=== PATIENT | female | born 1945 | race African-American/Black ===

== ENCOUNTER 2023-07-28 20:34 | Inpatient (IN) | payer MEDICARE ==
[~2023-07-28] VITALS: Ht 175.3 cm; Wt 84.4 kg
[~2023-07-28 20:34] MED LIST: LOSARTAN 50 MG
[2023-07-28 20:39] VITALS: O2SAT 98
[2023-07-28] MEDS: SODIUM CHLORIDE 0.9% 1,000 ML IV ONE (21:00)
[2023-07-28 21:29] LABS: BASOPHILS % 0.7 % (0.0-2.0); HEMATOCRIT. 38.2 % (36.0-48.0); HEMOGLOBIN. 12.8 g/dL (12.0-16.0); LYMPHOCYTES % 22.1 % (20.0-50.0); MEAN CORPUSCULAR HGB CONC 33.5 g/dL (31.0-37.0); MEAN CORPUSCULAR VOLUME 98.3 fL (81.0-99.0); MEAN PLATELET VOLUME 7.7 fl (7.4-10.4); MONOCYTES % 6.5 % (2.0-8.0); NEUTROPHILS % 69.7 % (40.0-76.0); PLATELET 214 x1000/uL (130-400); RED BLOOD CELL COUNT 3.89 mill/uL (4.2-5.4); RED CELL DISTRIBUTION WIDTH 12.7 % (11.6-14.6); WHITE BLOOD COUNT 5.5 x1000/uL (4.5-11.0)
[2023-07-28 21:33] LABS: CHLORIDE 109 mEq/L (98-107); POTASSIUM 4.6 mEq/L (3.5-5.1); SODIUM 140 mEq/L (136-145)
[2023-07-28 21:34] LABS: CALCIUM 9.5 mg/dL (8.7-10.4); CARBON DIOXIDE 24 mEq/L (21-32)
[2023-07-28 21:38] LABS: CREATININE 1.2 mg/dL (0.6-1.0)
[2023-07-28 21:39] LABS: GLUCOSE 253 mg/dL (70-105); UREA NITROGEN BLOOD 14 mg/dL (9-23)
[2023-07-28 21:41] LABS: ALANINE AMINOTRANSFERASE < 7 IU/L (10-49); ASPARTATE AMINOTRANSFERASE 14 IU/L (<34); BETA HYDROXYBUTYRATE 0.7 mMol/L (0.0-0.3); BILIRUBIN TOTAL 0.6 mg/dL (0.1-1.0); PROTEIN TOTAL 6.5 g/dL (6.0-8.3)
[2023-07-28 22:49] LABS: BG BASE EXCESS -2.3 mmol/L (-2.0-2.0); BG CARBOXYHEMOGLOBIN 0.7 % (0.5-1.5); BG DEOXYHEMOGLOBIN 2.4 % (0.0-5.0); BG HCO3 ACT 21.9 mmol/L (22.0-26.0); BG METHEMOGLOBIN 0.1 % (0.0-1.5); BG OXYGEN SATURATION 97.6 % (92.0-98.5); BG OXYHEMOGLOBIN 96.8 % (94.0-97.0); BG PCO2 35.8 mmHg (35.0-45.0); BG PH 7.405 (7.350-7.450); BG PO2 101.4 mmHg (75.0-100.0); BG SAMPLE SITE RIGHT BRACHIAL; BG TOTAL HEMOGLOBIN 12.6 g/dL (12.0-18.0); BG VENT MODE ROOM AIR
[2023-07-29 00:04] LABS: CLARITY URINE CLOUDY (CLEAR); COLOR URINE YELLOW (YELLOW); GLUCOSE URINE 3+ (NEGATIVE); KETONES URINE TRACE (NEGATIVE); LEUKOCYTE ESTERASE URINE NEGATIVE (NEGATIVE); NITRITE URINE NEGATIVE (NEGATIVE); OCCULT BLOOD URINE NEGATIVE (NEGATIVE); PH URINE 5.5 (4.5-8.0); PROTEIN URINE TRACE (NEGATIVE); SPECIFIC GRAVITY URINE 1.016 (1.005-1.030); UROBILINOGEN URINE 0.2 E.U./dL (0.2-1.0)
[2023-07-29] MEDS: INSULIN REGULAR (HUMULIN R) 300UNITS/3ML VIAL SUBCUT NR (00:42)
[2023-07-29 04:45] LABS: SQUAMOUS EPITHELIAL CELL URINE FEW /lpf (RARE/1+)
[2023-07-29 04:47] LABS: WBC URINE 0-2 /hpf (0-2)
[2023-07-29 04:51] LABS: RBC URINE 0-2 /hpf (0-2)
[2023-07-29 04:53] LABS: BACTERIA URINE 2+
[2023-07-29] MEDS ORDERED: ONDANSETRON HCL 4MG/2ML INJ IV PRN (07:45)
[2023-07-29] MEDS ORDERED: TRAMADOL 50MG TABLET PO PRN (07:45)
[2023-07-29] MEDS ORDERED: DOCUSATE SODIUM 100MG CAPSULE PO PRN (07:45)
[2023-07-29] MEDS ORDERED: GUAIFENESIN 200MG/10ML SUGAR FREE UDC PO PRN (07:45)
[2023-07-29 08:00] VITALS: BP 136/69; PULSE 72; RESP 18; TEMP 97.9
[2023-07-29] MEDS: ENOXAPARIN 40MG/0.4ML SYR SUBCUT SCH (09:59)
[2023-07-29 10:22] VITALS: BP 136/69; PULSE 72; RESP 18; TEMP 97.9
[2023-07-29] MEDS ORDERED: AMLO10TA80 PO (11:47)
[2023-07-29] MEDS ORDERED: ESCI-7 PO (11:47)
[2023-07-29] MEDS ORDERED: METF-415 MT (11:47)
[2023-07-29] MEDS ORDERED: LOSA50TA41 PO (11:47)
[2023-07-29 12:00] VITALS: BP 127/70; PULSE 73; RESP 18; TEMP 97.3
[2023-07-29] MEDS: SODIUM CHLORIDE 0.9% 1,000 ML IV SCH (13:34)
[2023-07-29 16:00] VITALS: BP 123/61; PULSE 74; RESP 18; TEMP 97.8
[2023-07-29] MEDS: METFORMIN HCL 850MG TABLET PO SCH (17:38)
[2023-07-29] MEDS ORDERED: DEXTROSE 50% WATER 50ML SYRINGE IV PRN (19:00)
[2023-07-29] MEDS: INSULIN LISPRO 100 UNITS/ML SUBCUT SCH (19:04)
[2023-07-29] MEDS ORDERED: NALOXONE HCL 0.4MG/ML VIAL IV PRN (19:15)
[2023-07-29] MEDS: BLOOD SUGAR DIAGNOSTIC STRIP TEST SCH (21:00)
[2023-07-29 22:24] LABS: TROPONIN I HIGH SENSITIVITY 6 ng/L (3.0-34)
[2023-07-29 23:55] VITALS: BP 149/90; PULSE 107; RESP 18; TEMP 97.2
[2023-07-30] VITALS: RESP 0
[2023-07-30] MEDS: ACETAMINOPHEN 325MG TABLET PO PRN (01:31)
[2023-07-30 04:25] VITALS: BP 135/74; PULSE 74; RESP 18; TEMP 97.8
[2023-07-30 06:34] LABS: BASOPHILS % 0.5 % (0.0-2.0); EOSINOPHILS % 1.5 % (0.0-5.0); HEMATOCRIT. 33.8 % (36.0-48.0); HEMOGLOBIN. 11.7 g/dL (12.0-16.0); LYMPHOCYTES % 35.4 % (20.0-50.0); MEAN CORPUSCULAR HEMOGLOBIN 32.7 pg (28.0-32.0); MEAN CORPUSCULAR HGB CONC 34.6 g/dL (31.0-37.0); MEAN CORPUSCULAR VOLUME 94.5 fL (81.0-99.0); MEAN PLATELET VOLUME 8.1 fl (7.4-10.4); MONOCYTES % 7.9 % (2.0-8.0); NEUTROPHILS % 54.7 % (40.0-76.0); PLATELET 180 x1000/uL (130-400); RED BLOOD CELL COUNT 3.57 mill/uL (4.2-5.4); RED CELL DISTRIBUTION WIDTH 12.8 % (11.6-14.6); WHITE BLOOD COUNT 5.5 x1000/uL (4.5-11.0)
[2023-07-30 06:36] LABS: CHLORIDE 110 mEq/L (98-107); POTASSIUM 3.9 mEq/L (3.5-5.1); SODIUM 142 mEq/L (136-145)
[2023-07-30 06:39] LABS: CARBON DIOXIDE 22 mEq/L (21-32)
[2023-07-30 06:40] LABS: CALCIUM 9.3 mg/dL (8.7-10.4)
[2023-07-30 06:41] LABS: TROPONIN I HIGH SENSITIVITY 6 ng/L (3.0-34)
[2023-07-30 06:44] LABS: CREATININE 0.9 mg/dL (0.6-1.0); GLUCOSE 162 mg/dL (70-105)
[2023-07-30 06:45] LABS: ALANINE AMINOTRANSFERASE 7 IU/L (10-49); LDL CHOLESTEROL 80 mg/dL (5-100); THYROID STIMULATING HORMONE 1.33 uIU/mL (0.55-4.78); TRIGLYCERIDE 78 mg/dL (0-150); UREA NITROGEN BLOOD 18 mg/dL (9-23)
[2023-07-30 06:46] LABS: ALBUMIN 3.7 g/dL (3.2-4.8); ASPARTATE AMINOTRANSFERASE 15 IU/L (<34); CHOLESTEROL 121 mg/dL (<200); HDL CHOLESTEROL 38 mg/dL (>65); T4 FREE 1.11 ng/dL (0.89-1.76)
[2023-07-30 06:47] LABS: BILIRUBIN TOTAL 0.6 mg/dL (0.1-1.0); PROTEIN TOTAL 6.3 g/dL (6.0-8.3)
[2023-07-30 08:45] VITALS: BP 125/69; PULSE 88; RESP 18; TEMP 96.4
[2023-07-30 12:00] VITALS: BP_SYST 128; BP_DIAS 70; BP_DIAS 78; PULSE 74; RESP 17; TEMP 98.3
[2023-07-30 16:00] VITALS: BP 149/80; PULSE 75; RESP 20; TEMP 98
[2023-07-30 20:00] VITALS: BP 140/78; PULSE 67; RESP 18; TEMP 98.2
[2023-07-31] VITALS: BP 143/77; PULSE 70; RESP 19; TEMP 98
[2023-07-31 04:00] VITALS: BP 140/76; PULSE 64; RESP 20; TEMP 98
[2023-07-31 08:00] VITALS: BP 140/60; PULSE 61; RESP 18; TEMP 97.7
[2023-07-31 12:00] VITALS: BP 123/64; PULSE 76; RESP 18; TEMP 97.6
[2023-07-31 16:00] VITALS: BP 135/68; PULSE 70; RESP 18; TEMP 97.6
[2023-07-31 20:00] VITALS: BP 145/77; PULSE 80; RESP 18; TEMP 97.5
[2023-08-01] VITALS (7 sets, daily range): BP systolic 127–155; BP diastolic 63–84; PULSE 71–79; RESP 17–20; TEMP 97.3–99
[2023-08-01] MEDS: CITALOPRAM HYDROBROMIDE 10MG TABLET PO SCH (14:05)
[2023-08-01] MEDS ORDERED: ONDANSETRON 4MG ODT PO PRN (15:59)
== END 2023-08-01 21:24 | DRG 74 ==
LOC: ER 20:34 → 7EST 07-29 01:28
PROVIDERS: ADMIT Hospitalist; ATTEND Hospitalist
DX: G90.9 Disorder of the autonomic nervous system, unspecified (principal); N39.0 Urinary tract infection, site not specified; E11.65 Type 2 diabetes mellitus with hyperglycemia; I10 Essential (primary) hypertension; E11.42 Type 2 diabetes mellitus with diabetic polyneuropathy; R26.9 Unspecified abnormalities of gait and mobility; D64.9 Anemia, unspecified; M16.11 Unilateral primary osteoarthritis, right hip; M17.11 Unilateral primary osteoarthritis, right knee; Z82.49 Family history of ischemic heart disease and other diseases of the circulatory system; Z87.891 Personal history of nicotine dependence; Z90.710 Acquired absence of both cervix and uterus
CPT/HCPCS: 36415; 36600; 71045; 72192; 73502; 73552; 73562; 73700; 80053; 80061; 81003; 82010; 82375; 82805; 82962; 83036; 84439; 84443; 84484; 85025; 93005; 93306; 93970; 97162; 97166; 97530; 99285; J1650; J1815; J7030

== ENCOUNTER 2023-08-01 21:25 | Inpatient (IN) | payer MEDICARE ==
[~2023-08-01] VITALS: Ht 175.3 cm; Wt 84.4 kg
[~2023-08-01 21:25] MED LIST changes: +AMLO10TA80 PO; +ESCI-7 PO; +LOSA50TA41 PO; +METF-415 MT
[2023-08-01 21:30] VITALS: BP 132/81; PULSE 81; RESP 19; TEMP 97.3
[2023-08-01 22:00] VITALS: BP 132/81; PULSE 81; RESP 19; TEMP 97.3
[2023-08-01] MEDS ORDERED: NALOXONE HCL 0.4MG/ML 1ML VIAL IV PRN (22:15)
[2023-08-01] MEDS ORDERED: GUAIFENESIN 200MG/10ML SUGAR FREE UDC PO PRN (22:15)
[2023-08-01] MEDS ORDERED: DEXTROSE 50% WATER 50ML SYRINGE IV PRN (22:15)
[2023-08-02] MEDS: BLOOD SUGAR DIAGNOSTIC STRIP TEST SCH (06:48)
[2023-08-02 06:50] LABS: BASOPHILS % 0.5 % (0.0-2.0); EOSINOPHILS % 1.4 % (0.0-5.0); HEMATOCRIT. 36.2 % (36.0-48.0); HEMOGLOBIN. 12.4 g/dL (12.0-16.0); LYMPHOCYTES % 33.5 % (20.0-50.0); MEAN CORPUSCULAR HEMOGLOBIN 32.7 pg (28.0-32.0); MEAN CORPUSCULAR HGB CONC 34.2 g/dL (31.0-37.0); MEAN CORPUSCULAR VOLUME 95.6 fL (81.0-99.0); MEAN PLATELET VOLUME 7.9 fl (7.4-10.4); NEUTROPHILS % 56.6 % (40.0-76.0); PLATELET 201 x1000/uL (130-400); RED BLOOD CELL COUNT 3.79 mill/uL (4.2-5.4); RED CELL DISTRIBUTION WIDTH 12.8 % (11.6-14.6); WHITE BLOOD COUNT 5.1 x1000/uL (4.5-11.0)
[2023-08-02] MEDS: INSULIN LISPRO 100 UNITS/ML SUBCUT SCH (07:07)
[2023-08-02 07:10] LABS: CHLORIDE 108 mEq/L (98-107); SODIUM 140 mEq/L (136-145)
[2023-08-02 07:11] LABS: CARBON DIOXIDE 24 mEq/L (21-32)
[2023-08-02 07:12] LABS: CALCIUM 9.1 mg/dL (8.7-10.4)
[2023-08-02 07:16] LABS: CREATININE 0.9 mg/dL (0.6-1.0); GLUCOSE 182 mg/dL (70-105)
[2023-08-02 07:17] LABS: UREA NITROGEN BLOOD 12 mg/dL (9-23)
[2023-08-02 07:18] LABS: ALANINE AMINOTRANSFERASE 10 IU/L (10-49); ASPARTATE AMINOTRANSFERASE 21 IU/L (<34)
[2023-08-02 07:19] LABS: BILIRUBIN TOTAL 0.5 mg/dL (0.1-1.0); PROTEIN TOTAL 6.8 g/dL (6.0-8.3)
[2023-08-02] MEDS: ENOXAPARIN 40MG/0.4ML SYR SUBCUT SCH (08:28)
[2023-08-02] MEDS: DOCUSATE SODIUM 100MG CAPSULE PO SCH (08:28)
[2023-08-02] MEDS: CITALOPRAM HYDROBROMIDE 10MG TABLET PO SCH (08:28)
[2023-08-02] MEDS: METFORMIN HCL 850MG TABLET PO SCH (08:28)
[2023-08-02] MEDS ORDERED: INSULIN LISPRO 100 UNITS/ML SUBCUT SCH (09:00)
[2023-08-02] MEDS: TRAMADOL 50MG TABLET PO PRN (09:17)
[2023-08-02 10:39] VITALS: BP 138/85; PULSE 79; RESP 18; TEMP 97.5
[2023-08-02 16:58] LABS: CLARITY URINE CLEAR (CLEAR); COLOR URINE DARK YELLOW (YELLOW); GLUCOSE URINE 2+ (NEGATIVE); KETONES URINE TRACE (NEGATIVE); LEUKOCYTE ESTERASE URINE NEGATIVE (NEGATIVE); NITRITE URINE NEGATIVE (NEGATIVE); OCCULT BLOOD URINE NEGATIVE (NEGATIVE); PH URINE 5.5 (4.5-8.0); PROTEIN URINE TRACE (NEGATIVE); SPECIFIC GRAVITY URINE 1.023 (1.005-1.030)
[2023-08-02 17:30] LABS: BACTERIA URINE TRACE; RBC URINE 0-2 /hpf (0-2); SQUAMOUS EPITHELIAL CELL URINE 1+ /lpf (RARE/1+); WBC URINE 0-2 /hpf (0-2)
[2023-08-02 18:10] LABS: TROPONIN I HIGH SENSITIVITY 5 ng/L (3.0-34)
[2023-08-02 20:00] VITALS: BP 130/84; PULSE 85; RESP 18; TEMP 98.4
[2023-08-03 06:16] LABS: BASOPHILS % 0.7 % (0.0-2.0); EOSINOPHILS % 0.3 % (0.0-5.0); HEMATOCRIT. 38.7 % (36.0-48.0); HEMOGLOBIN. 13.2 g/dL (12.0-16.0); LYMPHOCYTES % 21.4 % (20.0-50.0); MEAN CORPUSCULAR HEMOGLOBIN 32.8 pg (28.0-32.0); MEAN CORPUSCULAR HGB CONC 34.1 g/dL (31.0-37.0); MEAN CORPUSCULAR VOLUME 96.1 fL (81.0-99.0); MEAN PLATELET VOLUME 8.4 fl (7.4-10.4); MONOCYTES % 6.4 % (2.0-8.0); NEUTROPHILS % 71.2 % (40.0-76.0); PLATELET 176 x1000/uL (130-400); RED BLOOD CELL COUNT 4.03 mill/uL (4.2-5.4); RED CELL DISTRIBUTION WIDTH 13.2 % (11.6-14.6); WHITE BLOOD COUNT 5.4 x1000/uL (4.5-11.0)
[2023-08-03 06:20] LABS: CHLORIDE 107 mEq/L (98-107); POTASSIUM 4.4 mEq/L (3.5-5.1); SODIUM 139 mEq/L (136-145)
[2023-08-03 06:21] LABS: CALCIUM 9.2 mg/dL (8.7-10.4); CARBON DIOXIDE 24 mEq/L (21-32)
[2023-08-03 06:25] LABS: IRON 66 ug/dL (50-170)
[2023-08-03 06:26] LABS: AMMONIA < 17 uMol/L (<32); GLUCOSE 232 mg/dL (70-105); UREA NITROGEN BLOOD 16 mg/dL (9-23)
[2023-08-03 06:27] LABS: ALANINE AMINOTRANSFERASE 50 IU/L (10-49); ASPARTATE AMINOTRANSFERASE 73 IU/L (<34)
[2023-08-03 06:28] LABS: BILIRUBIN TOTAL 0.5 mg/dL (0.1-1.0); CREATINE KINASE 39 IU/L (34-145); PROTEIN TOTAL 6.4 g/dL (6.0-8.3); TOTAL IRON BINDING CAPACITY 292 ug/dl (250-425)
[2023-08-03 06:29] LABS: THYROID STIMULATING HORMONE 2.15 uIU/mL (0.55-4.78)
[2023-08-03 06:33] LABS: CREATININE 1.3 mg/dL (0.6-1.0)
[2023-08-03 07:05] LABS: FERRITIN 269 ng/mL (10-291)
[2023-08-03 07:06] LABS: FOLIC ACID (FOLATE) SERUM 6.01 ng/mL (>5.38)
[2023-08-03 07:07] LABS: VITAMIN B12 SERUM 705 pg/mL (211-911)
[2023-08-03 08:00] VITALS: BP 126/81; PULSE 70; RESP 18; TEMP 97.1
[2023-08-03] MEDS ORDERED: AMLO10TA80 PO (15:32)
[2023-08-03] MEDS ORDERED: ESCI-7 PO (15:32)
[2023-08-03] MEDS ORDERED: LOSA50TA41 PO (15:32)
[2023-08-03 20:00] VITALS: BP 132/60; PULSE 89; RESP 18; TEMP 97
[2023-08-04 07:16] LABS: HEMATOCRIT 30.4 % (36.0-48.0); HEMOGLOBIN 10.6 g/dL (12.0-16.0); MEAN CORPUSCULAR HGB CONC 34.8 g/dL (31.0-37.0); MEAN CORPUSCULAR VOLUME 94.9 fL (81.0-99.0); PLATELET 196 x1000/uL (130-400); RED BLOOD CELL COUNT 3.21 mill/uL (4.2-5.4); RED CELL DISTRIBUTION WIDTH 12.9 % (11.6-14.6); WHITE BLOOD COUNT 4.1 x1000/uL (4.5-11.0)
[2023-08-04 08:00] VITALS: BP 119/68; PULSE 73; RESP 18; TEMP 97.7
[2023-08-04 08:53] LABS: CHLORIDE 111 mEq/L (98-107); POTASSIUM 3.9 mEq/L (3.5-5.1); SODIUM 142 mEq/L (136-145)
[2023-08-04 08:55] LABS: CARBON DIOXIDE 23 mEq/L (21-32)
[2023-08-04 08:56] LABS: CALCIUM 8.8 mg/dL (8.7-10.4)
[2023-08-04 09:00] LABS: GLUCOSE 137 mg/dL (70-105)
[2023-08-04 09:01] LABS: UREA NITROGEN BLOOD 19 mg/dL (9-23)
[2023-08-04] MEDS: MAGNESIUM OXIDE 400MG TABLET PO SCH (09:37)
[2023-08-04 20:00] VITALS: BP 116/80; PULSE 77; RESP 19; TEMP 97.7
[2023-08-05 08:00] VITALS: BP 128/60; PULSE 53; RESP 18; TEMP 98.6
[2023-08-05 19:44] VITALS: BP 113/74; PULSE 84; RESP 19; TEMP 97.3
[2023-08-06] MEDS: ACETAMINOPHEN 325MG TABLET PO PRN (06:25)
[2023-08-06 07:53] VITALS: BP 135/69; PULSE 72; RESP 18; TEMP 98
[2023-08-06 20:00] VITALS: BP 146/89; PULSE 76; RESP 19; TEMP 98.6
[2023-08-07 06:56] LABS: BASOPHILS % 0.6 % (0.0-2.0); EOSINOPHILS % 2.5 % (0.0-5.0); HEMATOCRIT. 33.1 % (36.0-48.0); HEMOGLOBIN. 11.4 g/dL (12.0-16.0); LYMPHOCYTES % 36.5 % (20.0-50.0); MEAN CORPUSCULAR HEMOGLOBIN 32.9 pg (28.0-32.0); MEAN CORPUSCULAR HGB CONC 34.3 g/dL (31.0-37.0); MEAN CORPUSCULAR VOLUME 96.1 fL (81.0-99.0); MEAN PLATELET VOLUME 7.7 fl (7.4-10.4); MONOCYTES % 11.7 % (2.0-8.0); NEUTROPHILS % 48.7 % (40.0-76.0); PLATELET 205 x1000/uL (130-400); RED BLOOD CELL COUNT 3.45 mill/uL (4.2-5.4); RED CELL DISTRIBUTION WIDTH 12.9 % (11.6-14.6); WHITE BLOOD COUNT 4.2 x1000/uL (4.5-11.0)
[2023-08-07 07:04] LABS: CHLORIDE 109 mEq/L (98-107); POTASSIUM 4.5 mEq/L (3.5-5.1); SODIUM 140 mEq/L (136-145)
[2023-08-07 07:05] LABS: CARBON DIOXIDE 25 mEq/L (21-32)
[2023-08-07 07:10] LABS: CREATININE 0.9 mg/dL (0.6-1.0); GLUCOSE 147 mg/dL (70-105); UREA NITROGEN BLOOD 12 mg/dL (9-23)
[2023-08-07 07:12] LABS: PHOSPHORUS 2.4 mg/dL (2.5-4.9)
[2023-08-07 07:48] VITALS: BP 146/74; PULSE 73; RESP 16; TEMP 97.9
[2023-08-07] MEDS: MAGNESIUM 2 G PREMIX 50 ML IV ONE (16:39)
[2023-08-07] MEDS: SODIUM PHOSPHATE 10 MMOL in DEXT 5% WATER 246.6667 ML IV ONE (17:41)
[2023-08-07 20:00] VITALS: BP 122/64; PULSE 81; RESP 18; TEMP 97
[2023-08-08 07:46] LABS: PHOSPHORUS 2.7 mg/dL (2.5-4.9)
[2023-08-08 08:00] VITALS: BP 132/67; PULSE 80; RESP 18; TEMP 98.2
[2023-08-08] MEDS: ONDANSETRON 4MG ODT PO PRN (11:51)
[2023-08-08 19:49] VITALS: BP 131/47; PULSE 62; RESP 17; TEMP 98.4
[2023-08-09 08:00] VITALS: BP_SYST 129; BP_SYST 145; BP_DIAS 66; BP_DIAS 89; PULSE 70; PULSE 88; RESP 19; TEMP 97.7; TEMP 98.1
[2023-08-09 20:00] VITALS: BP 120/62; PULSE 83; RESP 18; TEMP 97.7
[2023-08-10 08:00] VITALS: BP 126/60; PULSE 65; RESP 18; TEMP 98
[2023-08-10 19:47] VITALS: BP 139/86; PULSE 56; RESP 20; TEMP 97.7
[2023-08-11 08:00] VITALS: BP 121/70; PULSE 76; RESP 18; TEMP 98
[2023-08-11] MEDS: ERGOCALCIFEROL 50000UNITS CAPSULE PO SCH (17:43)
[2023-08-11 20:00] VITALS: BP 134/68; PULSE 85; RESP 18; TEMP 98.1
[2023-08-12 08:00] VITALS: BP 124/64; PULSE 68; RESP 18; TEMP 97.3
[2023-08-12 09:14] LABS: BASOPHILS % 0.7 % (0.0-2.0); EOSINOPHILS % 2.4 % (0.0-5.0); HEMOGLOBIN. 10.9 g/dL (12.0-16.0); LYMPHOCYTES % 33.4 % (20.0-50.0); MEAN CORPUSCULAR HEMOGLOBIN 32.4 pg (28.0-32.0); MEAN CORPUSCULAR HGB CONC 34.1 g/dL (31.0-37.0); MEAN CORPUSCULAR VOLUME 95.2 fL (81.0-99.0); MEAN PLATELET VOLUME 7.5 fl (7.4-10.4); MONOCYTES % 11.2 % (2.0-8.0); NEUTROPHILS % 52.3 % (40.0-76.0); PLATELET 224 x1000/uL (130-400); RED BLOOD CELL COUNT 3.36 mill/uL (4.2-5.4); WHITE BLOOD COUNT 4.5 x1000/uL (4.5-11.0)
[2023-08-12 09:19] LABS: CHLORIDE 110 mEq/L (98-107); POTASSIUM 4.4 mEq/L (3.5-5.1); SODIUM 140 mEq/L (136-145)
[2023-08-12 09:20] LABS: CARBON DIOXIDE 25 mEq/L (21-32)
[2023-08-12 09:25] LABS: CREATININE 0.8 mg/dL (0.6-1.0); GLUCOSE 158 mg/dL (70-105); UREA NITROGEN BLOOD 11 mg/dL (9-23)
[2023-08-12 09:40] LABS: CALCIUM 10.3 mg/dL (8.7-10.4)
[2023-08-12 15:44] LABS: RED CELL DISTRIBUTION WIDTH 13.1 % (11.6-14.6)
[2023-08-12 20:00] VITALS: BP 115/68; PULSE 89; RESP 18; TEMP 97.5
[2023-08-13 08:00] VITALS: BP 117/56; PULSE 73; RESP 19; TEMP 98.2
[2023-08-13 20:00] VITALS: BP 125/65; PULSE 73; RESP 18; TEMP 97.7
[2023-08-14 08:00] VITALS: BP 114/72; PULSE 89; RESP 17; TEMP 98.5
[2023-08-14] MEDS ORDERED: NALOXONE HCL 0.4MG/ML VIAL IV PRN (09:00)
[2023-08-14] MEDS: TRAMADOL 50MG TABLET PO PRN (09:23)
[2023-08-14 20:00] VITALS: BP 121/77; PULSE 92; RESP 20; TEMP 97.2
[2023-08-15 08:00] VITALS: PULSE 73; RESP 18; TEMP 98.1
[2023-08-15] MEDS: ENOXAPARIN 40MG/0.4ML SYR SUBCUT SCH (08:33)
[2023-08-15] MEDS ORDERED: ACETAMINOPHEN 325MG TABLET PO PRN (10:45)
[2023-08-15 20:00] VITALS: BP 130/77; PULSE 49; RESP 19; TEMP 96.9
[2023-08-16 08:00] VITALS: BP 101/65; PULSE 86; RESP 18; TEMP 97.7
[2023-08-16 10:40] VITALS: BP 101/65; PULSE 86; TEMP 97.7; O2SAT 97
[2023-08-16 11:05] VITALS: BP 101/65; PULSE 86; RESP 18
[2023-08-18] MEDS ORDERED: ERGOCALCIFEROL 50000UNITS CAPSULE PO SCH (09:00)
== END 2023-08-16 11:40 | disposition home health service (06) | DRG 71 ==
PROVIDERS: ADMIT Physical Medicine & Rehabilitation Spinal Cord Injury Medicine; ATTEND Hospitalist
DX: G93.41 Metabolic encephalopathy (principal); N39.0 Urinary tract infection, site not specified; M15.9 Polyosteoarthritis, unspecified; E11.42 Type 2 diabetes mellitus with diabetic polyneuropathy; L60.3 Nail dystrophy; I10 Essential (primary) hypertension; E11.65 Type 2 diabetes mellitus with hyperglycemia; D64.9 Anemia, unspecified; E55.9 Vitamin D deficiency, unspecified; E73.9 Lactose intolerance, unspecified; F41.9 Anxiety disorder, unspecified; R05.9 Cough, unspecified; R53.83 Other fatigue; R11.2 Nausea with vomiting, unspecified; R42 Dizziness and giddiness; R53.1 Weakness; R53.81 Other malaise; R55 Syncope and collapse; R26.9 Unspecified abnormalities of gait and mobility; S80.11XA Contusion of right lower leg, initial encounter; F17.210 Nicotine dependence, cigarettes, uncomplicated; Z79.899 Other long term (current) drug therapy; Z79.4 Long term (current) use of insulin; Z79.84 Long term (current) use of oral hypoglycemic drugs; Z90.710 Acquired absence of both cervix and uterus; Z91.81 History of falling; Z82.49 Family history of ischemic heart disease and other diseases of the circulatory system; X58.XXXA Exposure to other specified factors, initial encounter; Y93.89 Activity, other specified; Y92.89 Other specified places as the place of occurrence of the external cause; Y99.8 Other external cause status
CPT/HCPCS: 36415; 70551; 80048; 80053; 81003; 82140; 82306; 82550; 82607; 82728; 82746; 82962; 83036; 83540; 83550; 83735; 84100; 84134; 84443; 84484; 85025; 85027; 92523; 92610; 93005; 97110; 97116; 97150; 97162; 97166; 97530; 97535; 97542; J1650; J1815; J3475; J3490; J7060; Q0162

== ENCOUNTER 2023-10-11 18:43 | Inpatient (IN) | payer MEDICARE ==
[~2023-10-11] VITALS: Ht 170.2 cm; Wt 67.1 kg
[~2023-10-11 18:43] MED LIST changes: -LOSARTAN 50 MG
[2023-10-11] MEDS: SODIUM CHLORIDE 0.9% 1000ML BAG (SEPSIS BOLUS) IV ONE (19:34)
[2023-10-11 20:06] LABS: BASOPHILS % 0.1 % (0.0-2.0); HEMATOCRIT. 36.7 % (36.0-48.0); HEMOGLOBIN. 12.1 g/dL (12.0-16.0); LYMPHOCYTES % 8.7 % (20.0-50.0); MEAN CORPUSCULAR HEMOGLOBIN 32.7 pg (28.0-32.0); MEAN CORPUSCULAR HGB CONC 33.1 g/dL (31.0-37.0); MEAN CORPUSCULAR VOLUME 98.6 fL (81.0-99.0); MEAN PLATELET VOLUME 7.5 fl (7.4-10.4); MONOCYTES % 4.9 % (2.0-8.0); NEUTROPHILS % 86.3 % (40.0-76.0); PLATELET 164 x1000/uL (130-400); RED BLOOD CELL COUNT 3.72 mill/uL (4.2-5.4); RED CELL DISTRIBUTION WIDTH 13.2 % (11.6-14.6); WHITE BLOOD COUNT 11.5 x1000/uL (4.5-11.0)
[2023-10-11 20:14] LABS: CHLORIDE 112 mEq/L (98-107); POTASSIUM 5.8 mEq/L (3.5-5.1); SODIUM 143 mEq/L (136-145)
[2023-10-11 20:15] LABS: CALCIUM 10.4 mg/dL (8.7-10.4); CARBON DIOXIDE 19 mEq/L (21-32)
[2023-10-11 20:19] LABS: INR 1.3; PROTHROMBIN TIME 14.2 sec (9.6-11.0)
[2023-10-11 20:20] LABS: GLUCOSE 181 mg/dL (70-105); UREA NITROGEN BLOOD 40 mg/dL (9-23)
[2023-10-11 20:21] LABS: TROPONIN I HIGH SENSITIVITY 7 ng/L (3.0-34)
[2023-10-11 20:22] LABS: ALANINE AMINOTRANSFERASE 30 IU/L (10-49); ALBUMIN 4.3 g/dL (3.2-4.8); ASPARTATE AMINOTRANSFERASE 45 IU/L (<34); BILIRUBIN DIRECT 0.3 mg/dL (<=3.0); CREATINE KINASE 185 IU/L (34-145); LACTATE DEHYDROGENASE 207 IU/L (120-246)
[2023-10-11 20:23] LABS: BILIRUBIN TOTAL 0.8 mg/dL (0.1-1.0); PROTEIN TOTAL 7.2 g/dL (6.0-8.3)
[2023-10-11 20:28] LABS: CREATININE 1.9 mg/dL (0.6-1.0)
[2023-10-11] MEDS ORDERED: CALCIUM GLUCONATE 1,000 MG in DEXT 5% WATER 100 ML IV ONE (22:00)
[2023-10-11] MEDS: CALCIUM GLUCONATE 1GM PREMIX 50 ML IV NR (22:19)
[2023-10-11] MEDS: DEXTROSE 50% WATER 50ML SYRINGE IV ONE (22:20)
[2023-10-11] MEDS: SODIUM BICARBONATE 8.4% 50MEQ/50ML SYR IV ONE (22:20)
[2023-10-11] MEDS: INSULIN REGULAR (HUMULIN R) 1000UNITS/10ML VIAL IV ONE (22:32)
[2023-10-11 23:16] LABS: CLARITY URINE CLEAR (CLEAR); COLOR URINE YELLOW (YELLOW); GLUCOSE URINE 2+ (NEGATIVE); KETONES URINE 1+ (NEGATIVE); LEUKOCYTE ESTERASE URINE NEGATIVE (NEGATIVE); NITRITE URINE NEGATIVE (NEGATIVE); OCCULT BLOOD URINE NEGATIVE (NEGATIVE); PROTEIN URINE NEGATIVE (NEGATIVE); SPECIFIC GRAVITY URINE 1.017 (1.005-1.030)
[2023-10-11] MEDS: CEFTRIAXONE 2GM/50ML 50 ML IV ONE (23:21)
[2023-10-11 23:25] LABS: *AMPHETAMINES SCREEN URINE NEGATIVE (NEGATIVE); *BARBITURATES SCREEN URINE NEGATIVE (NEGATIVE); *BENZODIAZEPINES SCREEN URINE NEGATIVE (NEGATIVE); *COCAINE SCREEN URINE NEGATIVE (NEGATIVE); CANNABINOID URINE SCREEN NEGATIVE (NEGATIVE); ECSTASY MDMA SCREEN URINE NEGATIVE (NEGATIVE); METHADONE URINE SCREEN NEGATIVE (NEGATIVE); OPIATES URINE SCREEN NEGATIVE (NEGATIVE); PHENCYCLIDINE URINE SCREEN NEGATIVE (NEGATIVE)
[2023-10-11 23:31] LABS: BACTERIA URINE 1+; RBC URINE 0-2 /hpf (0-2); SQUAMOUS EPITHELIAL CELL URINE FEW /lpf (RARE/1+); WBC URINE 0-2 /hpf (0-2)
[2023-10-12] MEDS: ALBUTEROL (0.083%) 2.5MG/3ML NEB HHN SCH (02:16)
[2023-10-12 03:30] VITALS: BP 131/75; PULSE 90; RESP 19; TEMP 97.5
[2023-10-12] MEDS ORDERED: SODIUM CHLORIDE 0.9% 1,000 ML IV SCH (06:15)
[2023-10-12] MEDS ORDERED: ONDANSETRON HCL 4MG/2ML INJ IV PRN (06:15)
[2023-10-12] MEDS ORDERED: DEXTROSE 50% WATER 50ML SYRINGE IV PRN (06:15)
[2023-10-12] MEDS: BLOOD SUGAR DIAGNOSTIC STRIP TEST SCH (06:50)
[2023-10-12] MEDS: INSULIN LISPRO 100 UNITS/ML SUBCUT SCH (07:02)
[2023-10-12 08:00] VITALS: BP 101/66; PULSE 75; RESP 14; TEMP 98.5
[2023-10-12] MEDS ORDERED: NALOXONE HCL 0.4MG/ML VIAL IV PRN (08:00)
[2023-10-12 08:59] LABS: BASOPHILS % 0.4 % (0.0-2.0); EOSINOPHILS % 0.6 % (0.0-5.0); HEMATOCRIT. 33.3 % (36.0-48.0); HEMOGLOBIN. 11.1 g/dL (12.0-16.0); LYMPHOCYTES % 16.2 % (20.0-50.0); MEAN CORPUSCULAR HEMOGLOBIN 32.6 pg (28.0-32.0); MEAN CORPUSCULAR HGB CONC 33.4 g/dL (31.0-37.0); MEAN CORPUSCULAR VOLUME 97.7 fL (81.0-99.0); MEAN PLATELET VOLUME 7.6 fl (7.4-10.4); MONOCYTES % 8.6 % (2.0-8.0); NEUTROPHILS % 74.2 % (40.0-76.0); PLATELET 146 x1000/uL (130-400); RED BLOOD CELL COUNT 3.41 mill/uL (4.2-5.4); WHITE BLOOD COUNT 7.9 x1000/uL (4.5-11.0)
[2023-10-12 09:06] LABS: POTASSIUM 4.3 mEq/L (3.5-5.1)
[2023-10-12 09:12] LABS: CREATININE 1.3 mg/dL (0.6-1.0)
[2023-10-12] MEDS: PANTOPRAZOLE SODIUM 40 MG/VIAL IV SCH (09:50)
[2023-10-12 12:00] VITALS: BP 106/62; PULSE 85; RESP 20; TEMP 97.9
[2023-10-12] MEDS: DEXT 5%/0.45% NACL 1000ML 1,000 ML IV SCH (12:36)
[2023-10-12 16:00] VITALS: BP 100/61; PULSE 77; RESP 13; TEMP 98.5
[2023-10-12 20:00] VITALS: BP 115/64; PULSE 77; RESP 15; TEMP 98.2
[2023-10-12] MEDS: ENOXAPARIN 60MG/0.6ML SYR SUBCUT SCH (22:58)
[2023-10-13] VITALS: BP 129/72; PULSE 75; RESP 16; TEMP 98
[2023-10-13] MEDS: HYDROCODONE/ACETAMINOPHEN 5/325MG TABLET PO PRN (02:01)
[2023-10-13 04:00] VITALS: BP 96/67; PULSE 62; RESP 21; TEMP 98.1
[2023-10-13 06:26] LABS: CHLORIDE 111 mEq/L (98-107); POTASSIUM 3.9 mEq/L (3.5-5.1); SODIUM 143 mEq/L (136-145)
[2023-10-13 06:27] LABS: CALCIUM 9.4 mg/dL (8.7-10.4); CARBON DIOXIDE 24 mEq/L (21-32)
[2023-10-13 06:32] LABS: GLUCOSE 168 mg/dL (70-105); UREA NITROGEN BLOOD 27 mg/dL (9-23)
[2023-10-13 06:59] LABS: BASOPHILS % 0.6 % (0.0-2.0); EOSINOPHILS % 1.5 % (0.0-5.0); HEMATOCRIT. 33.1 % (36.0-48.0); LYMPHOCYTES % 24.7 % (20.0-50.0); MEAN CORPUSCULAR HEMOGLOBIN 32.1 pg (28.0-32.0); MEAN CORPUSCULAR HGB CONC 33.4 g/dL (31.0-37.0); MEAN CORPUSCULAR VOLUME 96.3 fL (81.0-99.0); MEAN PLATELET VOLUME 8.3 fl (7.4-10.4); MONOCYTES % 10.3 % (2.0-8.0); NEUTROPHILS % 62.9 % (40.0-76.0); PLATELET 139 x1000/uL (130-400); RED BLOOD CELL COUNT 3.44 mill/uL (4.2-5.4); RED CELL DISTRIBUTION WIDTH 13.2 % (11.6-14.6); WHITE BLOOD COUNT 5.3 x1000/uL (4.5-11.0)
[2023-10-13 08:00] VITALS: BP 129/73; PULSE 66; RESP 14; TEMP 98.4
[2023-10-13] MEDS: ENOXAPARIN 60MG/0.6ML SYR SUBCUT SCH (11:00)
[2023-10-13] MEDS: IOHEXOL-300 100 ML BOTTLE ONE (11:17)
[2023-10-13 12:00] VITALS: BP 124/76; PULSE 72; RESP 19; TEMP 98.5
[2023-10-13 16:00] VITALS: BP 118/69; PULSE 67; RESP 18; TEMP 98.4
[2023-10-13 17:43] LABS: ALBUMIN 3.5 g/dL (3.2-4.8); PREALBUMIN 5.6 mg/dl (10.0-40.0)
[2023-10-13 20:00] VITALS: BP 135/82; PULSE 75; RESP 18; TEMP 98.1
[2023-10-14] VITALS: BP 131/79; PULSE 95; RESP 18; TEMP 98.4
[2023-10-14 04:00] VITALS: BP 136/92; PULSE 105; RESP 18; TEMP 98
[2023-10-14 08:00] VITALS: BP 130/67; PULSE 110; RESP 20; TEMP 98.5
[2023-10-14] MEDS: FAMOTIDINE 20MG/2ML VIAL IV SCH (08:41)
[2023-10-14] MEDS ORDERED: LORAZEPAM 0.5MG TABLET PO PRN (11:00)
[2023-10-14 12:00] VITALS: BP 112/81; PULSE 100; RESP 20; TEMP 98
[2023-10-14 16:00] VITALS: BP 125/85; PULSE 84; RESP 15; TEMP 98.7
[2023-10-14 20:00] VITALS: BP 127/74; PULSE 86; RESP 18; TEMP 98.4
[2023-10-15] VITALS (7 sets, daily range): BP systolic 123–150; BP diastolic 68–90; PULSE 64–76; RESP 13–22; TEMP 97.7–98.3
[2023-10-16] VITALS: BP 116/77; PULSE 76; RESP 17; TEMP 97.6
[2023-10-16 04:00] VITALS: BP 118/74; PULSE 73; RESP 17; TEMP 97.5
[2023-10-16 08:02] LABS: CARBON DIOXIDE 23 mEq/L (21-32); CHLORIDE 108 mEq/L (98-107); POTASSIUM 3.5 mEq/L (3.5-5.1); SODIUM 139 mEq/L (136-145)
[2023-10-16 08:03] LABS: CALCIUM 8.8 mg/dL (8.7-10.4)
[2023-10-16 08:05] LABS: CREATININE 0.8 mg/dL (0.6-1.0)
[2023-10-16 08:08] LABS: GLUCOSE 167 mg/dL (70-105); UREA NITROGEN BLOOD 8 mg/dL (9-23)
[2023-10-16 08:20] LABS: BASOPHILS % 0.7 % (0.0-2.0); EOSINOPHILS % 2.5 % (0.0-5.0); HEMATOCRIT. 31.4 % (36.0-48.0); HEMOGLOBIN. 10.6 g/dL (12.0-16.0); LYMPHOCYTES % 27.3 % (20.0-50.0); MEAN CORPUSCULAR HEMOGLOBIN 32.2 pg (28.0-32.0); MEAN CORPUSCULAR HGB CONC 33.7 g/dL (31.0-37.0); MEAN CORPUSCULAR VOLUME 95.5 fL (81.0-99.0); MEAN PLATELET VOLUME 8.2 fl (7.4-10.4); MONOCYTES % 10.5 % (2.0-8.0); PLATELET 175 x1000/uL (130-400); RED BLOOD CELL COUNT 3.29 mill/uL (4.2-5.4); RED CELL DISTRIBUTION WIDTH 12.7 % (11.6-14.6); WHITE BLOOD COUNT 4.7 x1000/uL (4.5-11.0)
[2023-10-16 12:00] VITALS: BP 128/78; PULSE 79; RESP 21; TEMP 98
[2023-10-16 15:13] VITALS: BP 130/89; PULSE 80; RESP 20; TEMP 97.8
[2023-10-16 20:00] VITALS: BP 109/76; PULSE 109; RESP 17; TEMP 98.2
[2023-10-16 20:10] VITALS: BP 130/89; PULSE 97; TEMP 97.8; O2SAT 97
[2023-10-17 13:11] LABS: ALPHA FETOPROTEIN TUMOR MARKER < 1.8 ng/mL (0.0-9.2); CA 19-9 136 U/mL (0-35)
== END 2023-10-16 20:45 | disposition hospice, home (50) | DRG 640 ==
LOC: ER 18:50 → 5WST 23:12 → EDBEDREQTM 23:17 → EDBEDREQ 23:17 → 3WST 10-12 01:59
PROVIDERS: ADMIT Internal Medicine; ATTEND Internal Medicine
DX: R62.7 Adult failure to thrive (principal); N17.0 Acute kidney failure with tubular necrosis; I82.411 Acute embolism and thrombosis of right femoral vein; C25.9 Malignant neoplasm of pancreas, unspecified; C78.7 Secondary malignant neoplasm of liver and intrahepatic bile duct; E11.9 Type 2 diabetes mellitus without complications; I10 Essential (primary) hypertension; F03.90 Unspecified dementia, unspecified severity, without behavioral disturbance, psychotic disturbance, mood disturbance, and anxiety; F17.200 Nicotine dependence, unspecified, uncomplicated; L89.156 Pressure-induced deep tissue damage of sacral region; J44.9 Chronic obstructive pulmonary disease, unspecified; Z68.23 Body mass index [BMI] 23.0-23.9, adult
CPT/HCPCS: 36415; 71045; 71260; 74177; 76770; 80048; 80076; 80305; 81003; 82040; 82105; 82378; 82550; 82962; 83036; 83605; 83615; 83880; 84134; 84145; 84484; 85025; 86301; 86850; 86900; 92610; 93005; 93970; 99291; J0610; J0696; J1650; J1815; J2470; J3490; J7030; J7060; Q9967